=== PATIENT | male | born 1940 | race Caucasian/White ===

== ENCOUNTER 2018-05-08 11:21 | Outpatient (CLI) | payer OTHER ==
[~2018-05-08 11:21] MED LIST: ALDACTONE25 MG PO; ALPHA LIPOIC A600 MG PO; ASA81 MG PO; BACLOFEN20 MG PO; BIOTIN-D1 GM MC; CALTRATE 600600 MG PO; CELEBREX100 MG PO; CIALIS5 MG PO; COQ-10100 MG PO; FIBER1 TAB.CHEW PO; GABAPENTIN600 MG PO; GARLIC OIL1000 MG PO; KLOR-CON 1010 MEQ PO; LIPITOR20 MG PO; MULTIVITAMIN; NEURONTIN800 MG PO; POTASSIUM595 ( 99 ) PO; RED YEAST RICE PO; REFRESH TEARS15 ML OP; SINGULAIR10 MG PO; SPIRIVA; SPIROLINA; TENORMIN50 MG PO; TYLENOL EXTRA500 MG PO; VALTREX1000 MG PO; VITAMIN C1000 M1 PO; VITAMIN D32000 UNIT PO
== END 2018-05-08 13:27 | disposition home or self-care (01) ==
LOC: NUCLEAR 11:21
DX: I82.401 Acute embolism and thrombosis of unspecified deep veins of right lower extremity (principal)

== ENCOUNTER 2018-11-11 12:49 | Outpatient (CLI) | payer OTHER | END 2018-11-11 12:52 | disposition home or self-care (01) | LOC: RAD 12:49 | DX: J44.1 Chronic obstructive pulmonary disease with (acute) exacerbation (principal) ==

== ENCOUNTER 2019-02-18 17:26 | Emergency (ER) | payer OTHER ==
[~2019-02-18] VITALS: Ht 188 cm; Wt 93.0 kg
== END 2019-02-19 13:20 | disposition home or self-care (01) ==
LOC: ER 17:26
DX: L03.116 Cellulitis of left lower limb (principal); L02.612 Cutaneous abscess of left foot; I10 Essential (primary) hypertension; M79.662 Pain in left lower leg

== ENCOUNTER 2019-03-17 09:16 | Outpatient (CLI) | payer OTHER | END 2019-03-17 13:37 | disposition home or self-care (01) | LOC: NUCLEAR 09:16 | DX: L02.611 Cutaneous abscess of right foot (principal) | CPT/HCPCS: 78315; A9503 ==

== ENCOUNTER 2019-04-07 14:06 | Outpatient (CLI) | payer OTHER | END 2019-04-07 15:00 | disposition home or self-care (01) | LOC: LAB 14:06 | DX: D64.89 Other specified anemias (principal); E11.65 Type 2 diabetes mellitus with hyperglycemia; L02.612 Cutaneous abscess of left foot ==

== ENCOUNTER → 2019-05-10 | Outpatient (CLI) | payer OTHER | END | disposition home or self-care (01) | LOC: TOM 09:43 | DX: K40.91 Unilateral inguinal hernia, without obstruction or gangrene, recurrent (principal) ==

== ENCOUNTER 2019-06-30 09:55 | Outpatient (CLI) | payer OTHER | END 2019-06-30 12:33 | disposition home or self-care (01) | LOC: TOM 09:55 | DX: M54.5 Low back pain (principal); M96.1 Postlaminectomy syndrome, not elsewhere classified ==